=== PATIENT | female | born 1950 | race Caucasian/White ===

== ENCOUNTER 2020-01-28 16:57 | Outpatient (CLI) | payer MEDICARE, SELFPAY ==
--- NOTE | 2020-01-28 17:18 | MR_ITS ---
WS: [id number] MRI RIGHT KNEE NONCONTRAST TECHNIQUE: Axial PD, coronal PD fat sat, coronal PD, sagittal PD, and sagittal PD fat-sat images obta ined. CLINICAL INFORMATION: RT KNEE INJURY W/ EFFUSION COMPARISON: None. FINDINGS: Distal quadriceps and patella tendons are intact. Hypertrophic patella. Small suprapatellar effusion. Edema in Hoffa's fat pad. Small amount of prepatellar and infrapatellar soft tissue edema. Anterior and posterior cruciate ligaments appear intact. Complex acute appearing tear involving the posterior horn medial meniscus extending to the articular surface. Associated edema. Blunting of the posterior horn. Complex tear extends to the meniscal root. Anterior horn is better preserved. Chronic intrasubs tance signal abnormality involving the lateral meniscus. No acute appearing lateral meniscal tear. Subchondral edema involving the medial tibial plateau with narrowing of the joint space. Moderate cho ndromalacia involving the medial and lateral joint compartments worse in the medial joint compartment . Moderate chondro malacia patella worse involving the medial joint compartment. Lobulated popliteal cyst measuring 1.9 x 3.4 x 8.1 cm AP by transverse by craniocaudal. MR/MR knee RT wo con* [id number] IMPRESSION: 1. Acute complex tear involving the posterior horn medial meniscus extending t o the articular surface with associated edema. This extends to the meniscal diomedes t with blunting. 2. Anterior and posterior cruciate ligaments appear intact. 3. Small suprapatellar effusion with soft tissue edema in Hoffa's fat pad and medial jointline soft tissues. 4. Moderate chondromalacia patella. Moderate chondromalacia involving the medi al and lateral joint compartments. 5. Narrowing of the medial joint compartment with subchondral edema in the tib ial plateau. 6. Lobulated popliteal cyst as described above
== END 2020-01-28 16:58 | disposition home or self-care (01) ==
PROVIDERS: PCP Family Medicine; Visit Provider Family Medicine
DX: M25.461 Effusion, right knee (principal); S83.241A Other tear of medial meniscus, current injury, right knee, initial encounter; R60.0 Localized edema; M22.41 Chondromalacia patellae, right knee; M71.21 Synovial cyst of popliteal space [Baker], right knee; X58.XXXA Exposure to other specified factors, initial encounter
CPT/HCPCS: 73721